=== PATIENT | female | born 1995 | race Caucasian/White ===

== ENCOUNTER 2016-06-11 13:48 | Emergency (ER) | payer OTHER ==
[~2016-06-11] VITALS: Ht 170.2 cm; Wt 53.0 kg
[2016-06-11 13:59] VITALS: TEMP 36.7; Ht 170.2 cm; Wt 53.0 kg
[2016-06-11] MEDS ORDERED: ONDANSETRON INJ 2 MG/ML 2 ML VIAL IV STA (15:36)
[2016-06-11] MEDS ORDERED: SODIUM CHLORIDE 0.9% 1000ML 1,000 ML IV ONE (15:45)
[2016-06-11] MEDS ORDERED: MoRPHine SULFATE 2 MG/ML CARP IV PRN (15:45)
[2016-06-11] MEDS ORDERED: MULT-506 PO (17:03)
[2016-06-11 17:11] LABS: BASO % 1.5 %; BASO ABS # 0.07 K/uL (0-0.2); COMPLETE YES; EOS % 9.5 %; HEMATOCRIT 33.1 % (37-47); LYMPH % 31.4 %; LYMPH ABS # 1.46 K/uL (1.2-3.4); MEAN CELL VOLUME 99.4 fL (80-100); MEAN CORPUSCULAR HEMOGLOBIN 34.2 pg (25-34); MEAN CORPUSCULAR HGB CONC 34.4 g/dl (32-36); MEAN PLATELET VOLUME 13.1 fL (7.4-10.4); MONO % 18.5 %; NEUT % 39.1 %; PLATELET COUNT 187 K/uL (130-400); RED BLOOD COUNT 3.33 M/uL (4.2-5.4); WHITE BLOOD COUNT 4.65 K/uL (4.8-10.8)
[2016-06-11 17:15] LABS: URINE APPEARANCE CLEAR (CLEAR); URINE BILIRUBIN NEG (NEG); URINE COLOR YELLOW; URINE NITRITE NEG (NEG); URINE PH 5.5 (4.5-7.5); URINE SPECIFIC GRAVITY 1.005 (1.000-1.030); UROBILINOGEN NEG (NEG); ZZUR CULT IF INDIC CLEAN CATCH NO
[2016-06-11 17:23] LABS: MANUAL MICROSCOPIC REQUIRED? NO; REVIEW REQ? NO
[2016-06-11 17:31] LABS: PARTIAL THROMBOPLASTIN RATIO 0.9; PROTHROMBIN TIME (PATIENT) 10.8 SECONDS (9.0-12.0)
[2016-06-11 17:39] LABS: ALT/SGPT 26 U/L (12-78); AST/SGOT 12 U/L (15-37); BLOOD UREA NITROGEN 4 mg/dl (7-18); BUN/CREATININE RATIO 7.6 (10-20); CALCIUM 8.7 mg/dl (8.5-10.1); CARBON DIOXIDE 28 mmol/L (21-32); CHLORIDE 110 mmol/L (98-107); CREATININE 0.55 mg/dl (0.60-1.20); GLUCOSE 80 mg/dl (70-99); POTASSIUM 3.3 mmol/L (3.5-5.1); SODIUM 142 mmol/L (136-145)
[2016-06-11 17:47] LABS: ALB/GLOB RATIO 1.1 (0.9-2); ALKALINE PHOSPHATASE 59 U/L (45-117)
--- NOTE | 2016-06-11 18:12 | DIAGNOSTIC IMAGING REPORT ---
PA CHEST WITH ABDOMINAL SERIES CLINICAL HISTORY: Left-sided abdominal pain. FINDINGS: A PA chest radiograph is obtained. No prior studies are available for comparison at the time of dictation. The cardiomediastinal silhouette is unremarkable. The lungs and pleural spaces are clear. No pneumothorax is seen. The bony thorax is grossly intact. Supine and erect abdominal radiographs are obtained. No prior studies are available for comparison at the time of dictation. There is a nonobstructed abdominal bowel gas pattern. There is moderate to severe constipation. No evidence of intraperitoneal free air is seen. There are no abnormal abdominal calcifications. Phleboliths are seen in the pelvis. The lumbosacral spine and bony pelvis appear intact. IMPRESSION: 1. No active disease in the chest. 2. Moderate to severe constipation. Electronically signed by: Yordy Villalpando M.D. 06/11/2016 6:10 PM Dictated Date/Time: 06/11/2016 6:09 PM
[2016-06-11] MEDS ORDERED: SOAP SUDS ENEMA PR ONE (19:00)
[2016-06-11] MEDS ORDERED: MAGNESIUM CITRATE 296 ML/BTL PO ONE (20:30)
[2016-06-11 21:22] VITALS: BP 91/58; PULSE 55; O2SAT 99
--- NOTE | 2016-06-11 22:33 | EMERGENCY ROOM VISIT NOTE ---
History First contact with patient: 15:06 Chief Complaint: ABDOMINAL PAIN Stated Complaint: ABDOMINAL PAIN, CRAMPS, BLOOD IN STOOL FOR 4 DAYS Nursing Triage Summary: Patient c/o abd cramping and diarrhea for the past 4 days with blood and mucous in it. History of Present Illness The patient is a 20 year old female who presents to the Emergency Room with complaints of left-sided abdominal pain slowly worsening over the past 4 days. The patient states that she has had watery bowel movements with bright red blood on her toilet paper after wiping. She has not had a recent fever or chills. No chest pain, chest tightness, upper abdominal pain, right-sided abdominal pain, or pelvic pain. She does not have vaginal irritation, drainage , or discharge. She believes that she has been eating and drinking as normal. She does practice a vegan diet, and has been doing this for some time. She does not have recent travel history or change in drinking water supply. The patient has a history of irritable bowel but no inflammatory bowel disease. She rates her current discomfort a 6/10. She is not taking anything over-the- counter for her symptoms. Review of Systems More than 10 systems were reviewed and otherwise negative with the exception of history of present illness. Past Medical/Surgical History No chronic medical disease Family History No pertinent family history Social History Smoking Status: Never Smoker Housing Status: lives with family Current/Historical Medications Scheduled Multivitamin (Multivitamin), 1 TAB PO DAILY Allergies Coded Allergies: Minocycline (Unverified Allergy, Severe, GI SYMPTOMS, 06/11/16) Penicillins (Unverified Allergy, Severe, UNKNOWN, 06/11/16) Physical Exam Vital Signs Date Time Temp Pulse Resp B/P Pulse Ox O2 Delivery O2 Flow Rate FiO2 06/11/16 21:22 55 16 91/58 99 Room Air 06/11/16 19:15 55 16 93/61 99 Room Air 06/11/16 16:59 51 16 91/60 100 Room Air 06/11/16 13:59 36.7 64 20 113/79 94 Room Air Pain Rating (0-10): 0 Physical Exam VITALS: Vitals are noted on the nurse's note and reviewed by myself. Vital signs stable. GENERAL: Well-developed, well-nourished, white female, who is in no acute distress and resting comfortably. Patient is cooperative with the examination. HEAD: Normocephalic atraumatic. HEART: Regular rate and rhythm without murmurs gallops or rubs. LUNGS: Clear to auscultation bilaterally without wheezes, rales or rhonchi. No retractions or accessory muscle use. ABDOMEN: Positive normal bowel sounds x 4. Soft with mild left-sided abdominal tenderness on exam. No rebound or guarding. No right-sided or lower abdominal tenderness. No CVA tenderness. MUSCULOSKELETAL: No muscle atrophy, erythema, or edema noted. Full range of motion without joint tenderness in all extremities. Medical Decision & Procedures ER Provider Diagnostic Interpretation: PA CHEST WITH ABDOMINAL SERIES CLINICAL HISTORY: Left-sided abdominal pain. FINDINGS: A PA chest radiograph is obtained. No prior studies are available for comparison at the time of dictation. The cardiomediastinal silhouette is unremarkable. The lungs and pleural spaces are clear. No pneumothorax is seen. The bony thorax is grossly intact. Supine and erect abdominal radiographs are obtained. No prior studies are available for comparison at the time of dictation. There is a nonobstructed abdominal bowel gas pattern. There is moderate to severe constipation. No evidence of intraperitoneal free air is seen. There are no abnormal abdominal calcifications. Phleboliths are seen in the pelvis. The lumbosacral spine and bony pelvis appear intact. IMPRESSION: 1. No active disease in the chest. 2. Moderate to severe constipation. Laboratory Results 06/11/16 16:41 Red Blood Count 3.33, Mean Corpuscular Volume 99.4, Mean Corpuscular Hemoglobin 34.2, Mean Corpuscular Hemoglobin Concent 34.4, Mean Platelet Volume 13.1, Neutrophils (%) (Auto) 39.1, Lymphocytes (%) (Auto) 31.4, Monocytes (%) (Auto) 18.5, Eosinophils (%) (Auto) 9.5, Basophils (%) (Auto) 1.5, Neutrophils # (Auto ) 1.82, Lymphocytes # (Auto) 1.46, Monocytes # (Auto) 0.86, Eosinophils # (Auto ) 0.44, Basophils # (Auto) 0.07 06/11/16 16:41 Test 06/11/16 16:41 06/11/16 16:51 White Blood Count 4.65 K/uL (4.8-10.8) Red Blood Count 3.33 M/uL (4.2-5.4) Hemoglobin 11.4 g/dL (12.0-16.0) Hematocrit 33.1 % (37-47) Mean Corpuscular Volume 99.4 fL (80-100) Mean Corpuscular Hemoglobin 34.2 pg (25-34) Mean Corpuscular Hemoglobin Concent 34.4 g/dl (32-36) Platelet Count 187 K/uL (130-400) Mean Platelet Volume 13.1 fL (7.4-10.4) Neutrophils (%) (Auto) 39.1 % Lymphocytes (%) (Auto) 31.4 % Monocytes (%) (Auto) 18.5 % Eosinophils (%) (Auto) 9.5 % Basophils (%) (Auto) 1.5 % Neutrophils # (Auto) 1.82 K/uL (1.4-6.5) Lymphocytes # (Auto) 1.46 K/uL (1.2-3.4) Monocytes # (Auto) 0.86 K/uL (0.11-0.59) Eosinophils # (Auto) 0.44 K/uL (0-0.5) Basophils # (Auto) 0.07 K/uL (0-0.2) RDW Standard Deviation 51.1 fL (36.4-46.3) RDW Coefficient of Variation 14.2 % (11.5-14.5) Immature Granulocyte % (Auto) 0.0 % Immature Granulocyte # (Auto) 0.00 K/uL (0.00-0.02) Erythrocyte Sedimentation Rate 6 mm/hr (0-21) Prothrombin Time 10.8 SECONDS (9.0-12.0) Prothromb Time International Ratio 1.0 (0.9-1.1) Activated Partial Thromboplast Time 24.0 SECONDS (21.0-31.0) Partial Thromboplastin Ratio 0.9 Urine Color YELLOW Urine Appearance CLEAR (CLEAR) Urine pH 5.5 (4.5-7.5) Urine Specific [place] 1.005 (1.000-1.030) Urine Protein NEG (NEG) Urine Glucose (UA) NEG (NEG) Urine Ketones NEG (NEG) Urine Occult Blood NEG (NEG) Urine Nitrite NEG (NEG) Urine Bilirubin NEG (NEG) Urine Urobilinogen NEG (NEG) Urine Leukocyte Esterase NEG (NEG) Urine Test NEG (NEG) Anion Gap 4.0 mmol/L (3-11) Est Creatinine Clear Calc Drug Dose 135.4 ml/min Estimated GFR () > 150.0 Estimated GFR (Non- 134.1 BUN/Creatinine Ratio 7.6 (10-20) Calcium Level 8.7 mg/dl (8.5-10.1) Magnesium Level 2.0 mg/dl (1.8-2.4) Total Bilirubin 0.3 mg/dl (0.2-1) Aspartate Amino Transf (AST/SGOT) 12 U/L (15-37) Alanine Aminotransferase (ALT/SGPT) 26 U/L (12-78) Alkaline Phosphatase 59 U/L (45-117) C-Reactive Protein 0.60 mg/dl (0-0.29) Total Protein 7.5 gm/dl (6.4-8.2) Albumin 4.0 gm/dl (3.4-5.0) Globulin 3.5 gm/dl (2.5-4.0) Albumin/Globulin Ratio 1.1 (0.9-2) Lipase 409 U/L (73-393) Thyroid Stimulating Hormone (TSH) 1.880 uIu/ml (0.300-4.500) Bedside Lactic Acid Venous 0.56 mmol/L (0.90-1.70) Date/Time Source Procedure Growth Status 06/11/16 16:41 Stool C.difficile Toxin B Gene (PCR) - Final No C. difficile toxin B gene detected Complete Medications Administered Medications (Trade) Dose Ordered Sig/Mary Kay Route Start Time Stop Time Status Last Admin Dose Admin Sodium Chloride (Nss 1000ml) 1,000 ml @ 999 mls/hr Q1H1M ONCE IV 06/11/16 15:45 06/11/16 16:45 DC 06/11/16 17:00 999 MLS/HR Miscellaneous (Soap Suds Enema) 1 ea NOW ONCE NC 06/11/16 19:00 06/11/16 19:01 DC 06/11/16 19:00 1 EA Magnesium Citrate (Citrate Of Magnesia Soln) 296 ml NOW ONCE PO 06/11/16 20:30 06/11/16 20:31 DC 06/11/16 21:40 296 ML ED Course Physical exam and history were performed. Nursing notes and EMR were reviewed. Patient appears to have left-sided abdominal pain with diarrhea and bright red blood when wiping for the past 4 days. The patient does not appear toxic on examination. She does have some tenderness without rebound. IV access was established and labs were obtained. Patient was hydrated with normal saline. She was ordered pain medicine and nausea medicine, but declined this. Based on her symptoms I elected to start her evaluation with plain films and gather stool samples. The patient blood work is as above and was reviewed. She does not have a significant elevated white blood cell count. She is very slightly anemic. Lipase and transaminases were not diagnostic. Her lactic is negative and I do not suspect ischemic gut. Stool cultures are pending, however her C. difficile did return as negative. X-rays are as above and show a large amount of stool consistent with constipation. Her guaiac was positive, but this is likely from the constipation itself. On reexamination the patient continued to have some mild left-sided discomfort. The patient and I had a lengthy discussion regarding her symptoms, as she does appear to have a large amount of stool in her colon. After discussion we did elect to perform a soapsuds enema. Following this she did have mild improvement of symptoms. Overall the patient does appear stable for discharge home. Because she did not have significant results with her enema I will give her magnesium citrate to take at home. The patient is a vegan and may benefit from seeing a hairspring ii inspector or possibly gastroenterology. I did recommend that she increase her fluid intake and consider [id number] Colace. The patient may also follow with her primary care physician. She was otherwise invited back to the ER with any new, worsening, or concerning symptoms. The chart was completed utilizing [employer] Speech Voice Recognition Software. Grammatical errors, random word insertions, pronoun errors, and incomplete sentences are an occasional consequence of this system due to software limitations, ambient noise, and hardware issues. Any formal questions or concerns about the content, text, or information contained within the body of this dictation should be directly addressed to the provider for clarification. . Medical Decision Differential diagnosis: Etiologies such as appendicitis, diverticulitis, PUD, biliary pathology, UTI, pancreatitis, obstruction, mesenteric ischemia, aortic pathology, infections, inflammatory bowel disease, renal colic, as well as others were entertained. Impression Primary Impression: Left sided abdominal pain Additional Impression: Constipation Departure Information Dispostion Home / Self-Care Condition GOOD Forms HOME CARE DOCUMENTATION FORM, IMPORTANT VISIT INFORMATION Patient Instructions My [facility] Additional Instructions You were seen and evaluated today on an emergency basis only. This is not a substitute for, or an effort to provide, complete comprehensive medical care. It is not possible to recognize and treat all injuries or illnesses in a single emergency department visit. For this reason it is recommended that you followup with your primary care physician next week for ongoing care and evaluation. Drink plenty of fluids and remain well hydrated. Drink magnesium citrate tomorrow. Drink one half the bottle, wait one to 2 hours, then drink the other half. This medicine will typically elicit a bowel movement in a few hours and will help with the symptoms. You may wish to use an [id number] stool softener such as Colace to help prevent future episodes of this. You may also occasionally use MiraLAX if needed. If symptoms persist you may wish to follow with gastroenterology for further management. You are welcome to return to the emergency department anytime with new, worsening, or concerning symptoms. Problem Qualifiers
[2016-06-15 12:31] LABS: O&P SOURCE OTHER-STOOL
== END 2016-06-11 21:52 | disposition home or self-care (01) ==
LOC: C.EDB 13:50
DX: K59.00 Constipation, unspecified (principal); K58.9 Irritable bowel syndrome, unspecified